=== PATIENT | female | born 1975 | race Caucasian/White ===

== ENCOUNTER 2016-12-09 16:44 | Observation (INO) | payer BC ==
--- NOTE | ~2016-12-09 | HP ---
History And Physical [id number] [place]. [address] NAME: JUAN PABLO CARLOS : 73 STATUS : ADM Lito PAT#: [id number] AGE: 41 ADM/REG DATE : 12/09/16 MR#: [id number] REPORT SERV DATE: 12/10/16 DICTATED BY: RADHA BAKER DATE: 12/10/16 REPORT STATUS : Draft TRANSCRIBED BY: MODSammie DATE: 12/10/16 DATE OF ADMISSION: 12/09/2016 CHIEF COMPLAINT: Chest pain. HISTORY OF PRESENT ILLNESS: A very anxious, 41-year-old white female with no known history of CAD, presents to our facility complaining of a several days of chest pain. She has also been to the [facility] recently with two visits for similar complaints, but no cardiac testing seemingly was performed. The patient states over the last two days, she has experienced sharp shooting pain that radiates down her left arm, also described as a pressure and a tightness. At its most intense, she rates it a 10/10. At time of interview in the [facility], she rates it a 10/10 as well. Episodes last approximately 20 minutes in duration. They seem to be relieved with morphine and the addition of Phenergan at the patient's request. She reports random episodes of chest pain, occurring at least 10 episodes per day. She has taken nitroglycerin at home with no improvement in her symptoms. She reports associated shortness of breath, nausea, diaphoresis, dizziness, denies any belching. She reports considerable fatigue. She reports having had a TIA in 12/2015. Denies history of heart attack, DVT, or pulmonary embolus. The patient denies any recent fever or chills. Describes occasional palpitations. Consumes caffeinated beverages "all day" including Coke and coffee. No syncopal episodes. Denies PND or orthopnea. After review of record, the patient was seen in 11/2015 at this facility for stroke-like symptoms, particularly dysarthria and right facial droop. She was also seen during that admission by Dr. Krishna Gallagher and thought to have a conversion disorder but diagnosed as generalized anxiety disorder and started on Cymbalta and Xanax at that visit. PAST MEDICAL HISTORY: 1. Anxiety disorder. 2. Dyslipidemia. 3. Nausea. 4. Hypothyroid, on replacement. 5. GERD. 6. History of labile blood pressure. 7. History of TIA in 12/2015. 8. Former tobacco abuse. 9. Positive family history for early CAD. PAST SURGICAL HISTORY: 1. Hysterectomy. 2. Cholecystectomy. 3. Sinus surgery. 4. Bladder sling. 5. Cyst removed from ovary. 6. Endometrial surgery. History And Physical [address] [address] NAME: JUAN PABLO CARLOS : 73 STATUS : ADM Lito PAT#: [id number] AGE: 41 ADM/REG DATE : 12/09/16 MR#: [id number] REPORT SERV DATE: 12/10/16 DICTATED BY: RADHA BAKER DATE: 12/10/16 REPORT STATUS : Draft TRANSCRIBED BY: SILAS DATE: 12/10/16 7. Bilateral carpal tunnel. 8. Right elbow surgery. SOCIAL HISTORY: She is with three children. Does not work outside the home. She does not have an exercise routine. Quit smoking two years ago, prior to that was one pack per day for 25 years. Denies alcohol or illicits. FAMILY HISTORY: Mother at age of 52 of a heart attack. Father with heart attack and bypass at 60, in his 70s. Brother with a stroke at 65 recently with a history of heart attack and stents. Brother with a stroke in his 50s, remains alive at 58. REVIEW OF SYSTEMS: A 14-point review of systems performed, significant for HPI. No other contributory diagnoses identified. ALLERGIES: TO PERCOCET, ITCHING. [employer], DOES NOT WORK. HOME MEDICINES: Aspirin 81 mg daily; Xanax 0.25 mg twice daily; labetalol 200 mg twice daily (seldom required); atorvastatin 40 mg nightly; nitroglycerin p.r.n.; levothyroxine 25 mcg daily; vitamin D 2000 units twice daily; Valtrex 1 g nightly; Protonix 40 mg twice daily; Cymbalta 60 mg nightly; estradiol 2 mg at bedtime; Phenergan 25 mg p.o. every six hours p.r.n. PHYSICAL EXAMINATION: VITAL SIGNS: Blood pressure 131/87, pulse 78, respirations 16, temperature 97.9, O2 saturation 98% on room air. Height 5 feet 8 inches, weight 181 pounds. BMI 27.5. GENERAL: Cooperative, in no apparent distress. HEENT: Pupils 2 mm, sclera nonicteric. Nares patent. Moist mucous membranes. No xanthelasma. NECK: Trachea midline, no thyromegaly. No JVD. No bruits. LYMPH: No cervical lymphadenopathy. No supraclavicular lymphadenopathy. RESPIRATORY: Unlabored respirations. Breath sounds clear bilaterally to posterior auscultation. No wheezes or rhonchi. CARDIOVASCULAR: Regular rate. No murmur, rub or gallop appreciated. Extremities without edema. Pulses 2+ bilaterally. ABDOMEN: Soft, nontender, nondistended, normal bowel sounds auscultated throughout. No organomegaly. SKIN: Warm, dry extremities. No pallor, or cyanosis. PSYCHIATRIC: Appropriate affect. Alert, oriented x3. LABORATORY DATA: Troponin less than 0.02 twice, potassium 4.3, BUN 12, creatinine 0.83, glucose 85, magnesium 2.1. WBC 7.6, hemoglobin 13.4, hematocrit 38.0, platelet count 227,000. EKG sinus rhythm. Inferior Q-waves anterior lateral ST-T wave changes. Echo 11/26/2015, EF 56%. Carotid 11/2015, grade 1 disease bilaterally. History And Physical [address] [address] NAME: JUAN PABLO CARLOS : 73 STATUS : ADM Lito PAT#: [id number] AGE: 41 ADM/REG DATE : 12/09/16 MR#: [id number] REPORT SERV DATE: 12/10/16 DICTATED BY: RADHA BAKER DATE: 12/10/16 REPORT STATUS : Draft TRANSCRIBED BY: SILAS DATE: 12/10/16 ASSESSMENT AND PLAN: 1. Chest pain with ongoing intensity at a 10 per patient's report with multiple admissions or visits to [facility] and now to our facility. Abnormal EKG. Two troponins negative, third pending. Hold n.p.o. for now. We will discuss with rounding physician whether chest pain protocol to be done versus cardiac catheterization. Further recommendations forthcoming. 2. Anxiety. Medicaid per home medication routine. 3. Dyslipidemia. Continue statin. HARDEEP/SILAS MIRNA Avitia, JIMMY-RUBY / [id number] CC: MIRNA Avitia, JIMMY-RUBY [place]
[~2016-12-09 16:44] MED LIST: ACET500CAP PO; ASA5GR PO; ASAB PO; ASABAYER PO; BENTYL20 PO; CYMBALTA60 PO; GYNODIOL2 MG PO; LIPITOR40 PO; LOP25 PO; LOP50 PO; MOTRIN IB200 MG PO; NORCO1 TA1 PO; NORV5 PO; PR12.5 PO; PR25 PO; PROTONIX PO; SYN.025B PO; TRAN200 PO; VALTREX1 GM PO; VITAMIN D31000 UNIT PO; XANAX1 MG PO
[2016-12-09 17:08] LABS: BASOPHILS 0.4 %; BASOPHILS ABSOLUTE 0.03 10/3/uL (0.0-0.16); EOSINOPHILS 1.1 %; EOSINOPHILS ABSOLUTE 0.08 10/3/uL (0.0-0.53); ER CBC TAT 0 Hrs 05 Mins; HEMOGLOBIN 13.4 g/dL (12.0-16.0); IMMATURE GRANULOCYTES 0.1 %; IMMATURE GRANULOCYTES ABSOLUTE 0.01 10/3/uL (0.0-0.11); LYMPHOCYTES 28.9 %; MANUAL DIFF NO %; MEAN CORPUS HGB CONC 35.3 g/dL (32.0-36.0); MEAN CORPUSCULAR HEMOGLOB 33.3 pg (26.0-34.0); MEAN CORPUSCULAR VOLUME 94.5 fL (80-100); MEAN PLATELET VOLUME 9.6 fL (9.2-13.0); MONOCYTES 8.3 %; MONOCYTES ABSOLUTE 0.63 10/3/uL (0.21-1.20); NEUTROPHILS 61.2 %; NEUTROPHILS ABSOLUTE 4.65 10/3/uL (2.02-8.40); PLATELET COUNT 227 10/3/uL (150-400); RBC DISTRIBUTION WIDTH 12.6 % (12.0-16.0); RED CELL COUNT 4.02 10/6/uL (4.0-5.6); WHITE BLOOD CELLS 7.6 10/3/uL (4.5-10.5)
[2016-12-09 17:22] LABS: PROTIME (NOT ORD) 13.4 SEC (12.0-14.5)
[2016-12-09 17:23] LABS: BUN (BLOOD UREA NITROGEN) 12 MG/DL (6-23); CALCIUM, SERUM 9.5 MG/DL (8.5-10.4); CHEST PAIN PROFILE TAT 0 Hrs 20 Mins; CHLORIDE, SERUM 101 MMOL/L (96-112); CO2 (CARBON DIOXIDE) 27 MMOL/L (24-34); CREATININE 0.83 MG/DL (0.55-1.02); GFR AFRICAN AMERICAN 101 ML/MIN (>=60); GFR NON AFRICAN AMERICAN 87 ML/MIN (>=60); PARTIAL THROMBO TIME 28.9 SEC (22.5-37.2); POTASSIUM, SERUM 4.3 MMOL/L (3.5-5.3); SODIUM, SERUM 138 MMOL/L (135-148); TROPONIN I <0.02 NG/ML (<0.05)
[2016-12-09 17:25] LABS: GLUCOSE, SERUM 85 MG/DL (60-99)
[2016-12-09] MEDS ORDERED: X25 PO (19:40)
[2016-12-09] MEDS ORDERED: HALF81 PO (19:40)
[2016-12-09] MEDS ORDERED: LIPITOR40 PO (19:41)
[2016-12-09] MEDS ORDERED: TRAN200 PO (19:41)
[2016-12-09] MEDS ORDERED: NITROSTAT0.4 MG SL (19:41)
[2016-12-09] MEDS ORDERED: LEVOTHYROXIN25 MCG PO (19:42)
[2016-12-09] MEDS ORDERED: PROTONIX PO (19:43)
[2016-12-09] MEDS ORDERED: VITAMIN D31000 UNIT PO (19:43)
[2016-12-09] MEDS ORDERED: VALTREX5 PO (19:43)
[2016-12-09] MEDS ORDERED: CYMBALTA60 PO (19:44)
[2016-12-09] MEDS ORDERED: ESTRADIOL2 MG PO (19:44)
[2016-12-09] MEDS ORDERED: PR25 PO (19:44)
[2016-12-10 15:48] LABS: TROPONIN I <0.02 NG/ML (<0.05)
[2016-12-10 16:38] LABS: FREE T4 1.03 NG/DL (0.76-1.46)
== END 2016-12-11 15:28 | disposition home or self-care (01) ==
LOC: ER 16:44 → CDU1 19:26
PROVIDERS: Clinical Nurse Specialist; Hospitalist
DX: R07.9 Chest pain, unspecified (principal); I10 Essential (primary) hypertension; E78.5 Hyperlipidemia, unspecified; E03.9 Hypothyroidism, unspecified; K21.9 Gastro-esophageal reflux disease without esophagitis; F41.9 Anxiety disorder, unspecified; Z86.73 Personal history of transient ischemic attack (TIA), and cerebral infarction without residual deficits; Z87.891 Personal history of nicotine dependence; Z82.49 Family history of ischemic heart disease and other diseases of the circulatory system; Z90.710 Acquired absence of both cervix and uterus; Z90.49 Acquired absence of other specified parts of digestive tract; Z98.890 Other specified postprocedural states; Z82.3 Family history of stroke; Z88.5 Allergy status to narcotic agent; Z88.8 Allergy status to other drugs, medicaments and biological substances; Z79.82 Long term (current) use of aspirin; Z79.818 Long term (current) use of other agents affecting estrogen receptors and estrogen levels; Z79.899 Other long term (current) drug therapy
CPT/HCPCS: 71020; 71275; 78452; 80048; 83735; 84439; 84443; 84484; 85025; 85610; 85730; 93005; 93017; 96374; 96375; 96376; 99285; A9270-GY; A9502; G0378; J0153; J2405; J2550; Q9967

== ENCOUNTER 2017-01-13 09:55 | Day surgery (SDC) | payer BC ==
[~2017-01-13 09:55] MED LIST changes: +ESTRADIOL2 MG PO; +HALF81 PO; +LEVOTHYROXIN25 MCG PO; +NITROSTAT0.4 MG SL; +VALTREX5 PO; +X25 PO
== END 2017-01-13 23:59 | disposition home or self-care (01) ==
LOC: DMU 09:55
PROVIDERS: Internal Medicine Gastroenterology
PROC: 4A1B78Z Monitoring of Gastrointestinal Motility, Via Natural or Artificial Opening (ICD-10-PCS; principal; 2017-01-13 10:30)
DX: K21.9 Gastro-esophageal reflux disease without esophagitis (principal); Z88.8 Allergy status to other drugs, medicaments and biological substances
CPT/HCPCS: A9270-GY; C1894